=== PATIENT | male | born 1980 | race Caucasian/White ===

== ENCOUNTER 2016-06-03 14:14 | Emergency (ER) | payer OTHER ==
[2016-06-03] MEDS ORDERED: Ondansetron 4 MG/2 ML SDV IVPUSH ONE (14:32)
[2016-06-03] MEDS ORDERED: Sodium Chloride 0.9% 10 ML Syringe FLUSH PRN (14:32)
[2016-06-03] MEDS ORDERED: Famotidine 20 MG/2 ML SDV IVPUSH ONE (14:34)
--- NOTE | 2016-06-03 14:40 | EDM.PDOC ---
ED HISTORY OF PRESENT ILLNESS - General Chief Complaint: Chest Pain Stated Complaint: CHEST PAIN Time Seen by Provider: 06/03/16 14:24 Source of Information: Reports: Patient History Limitations: Reports: No limitations - History of Present Illness INITIAL COMMENTS - FREE TEXT/NARRATIVE: The patient presents with chest pain, abdominal pain, nausea, and diarrhea. He woke up this morning about 5am and worked out and before that he felt nauseated. He drove from [place] to here and he thought he was hungry so he ate a turkey lettuce wrap in [place]. That did not make him feel better. He came to our hospital to do some work and he developed some chest pain in the mid chest. He has no shortness of breath with it. He has no fever or chills. He does have generalized abdominal pain and nausea. He has diarrhea also. He does not think he ate any bad food and he was not around anyone that is sick as far as he knows of. He has a history of WPW. He had an electrophysiology study and they told him it was not in a bad spot and he did not need an ablation. Timing/Duration: Reports: Day(s): (Since this morning) Severity: moderate Location, General: Reports: chest Quality: Reports: Pressure Improves with: Reports: None Worsens with: Reports: None Associated Symptoms (General): Reports: chest pain, nausea/vomiting. Denies: cough, fever/chills, shortness of breath - Related Data Allergies/ADRs: Allergies Allergy/AdvReac Type Severity Reaction Status Date / Time methylphenidate Allergy Swelling Verified 06/03/16 14:23 [From Ritalin] Tetracyclines Allergy Swelling Verified 06/03/16 14:23 Home Meds: Home Meds Esomeprazole Magnesium [Nexium] 1 tab PO DAILY 06/03/16 [History] Ondansetron [Zofran ODT] 4 mg PO Q6H PRN #20 tab.dis 06/03/16 [Rx] Sertraline [Zoloft] 1 tab PO BEDTIME 06/03/16 [History] ED ROS GENERAL - Review of Systems Review Of Systems: See Below Constitutional: Reports: no symptoms HEENT: Reports: No symptoms Respiratory: Reports: no symptoms Cardiovascular: Reports: Chest pain Endocrine: Reports: no symptoms GI/Abdominal: Reports: Abdominal pain, Diarrhea, Nausea. Denies: Vomiting : Reports: no symptoms Musculoskeletal: Reports: no symptoms Skin: Reports: no symptoms Neurological: Reports: no symptoms ED EXAM, GENERAL - Physical Exam Exam: See Below Exam Limited By: No limitations General Appearance: alert, no apparent distress Ears: normal external exam Nose: normal inspection Head: atraumatic, normocephalic Respiratory/Chest: no respiratory distress, lungs clear, normal breath sounds Cardiovascular: regular rate, rhythm, no edema, no murmur GI/Abdominal: soft, non tender, no organomegaly, no mass Back Exam: normal inspection Extremities: normal inspection Neurological: alert, oriented, no motor/sensory deficits EKG INTERPRETATION EKG Date: 06/03/16 Time: 14:58 Rhythm: NSR Rate (beats/min): 83 [place]: LAD-left axis deviation P-wave: present QRS: normal ST-T: normal QT: normal EKG Interpretation Comments: Q waves in the inferior leads Course - Vital Signs Last Recorded V/S: Last Vital Signs Temp 97.2 F 06/03/16 14:25 Pulse 92 06/03/16 14:25 Resp 14 06/03/16 14:25 BP 146/96 H 06/03/16 14:25 Pulse Ox 99 06/03/16 14:25 - Orders/Labs/Meds Orders: Active Orders 24 hr Category Date Time Status Cardiac Monitoring [RC] . DIRECTED Care 06/03/16 14:32 Active EKG Documentation Completion [RC] STAT Care 06/03/16 14:34 Active Peripheral IV Care [RC] . DIRECTED Care 06/03/16 14:34 Active Sodium Chloride 0.9% [Normal Saline] 1,000 ml Med 06/03/16 14:45 Active IV .BOLUS Sodium Chloride 0.9% [Normal Saline] 1,000 ml Med 06/03/16 16:19 Active IV ONETIME Sodium Chloride 0.9% [Saline Flush] Med 06/03/16 14:32 Active 10 ml FLUSH ASDIRECTED PRN ED Antiemetic Medication Reflex [OM.PC] Stat Oth 06/03/16 14:33 Ordered Peripheral IV Insertion Adult [OM.PC] Stat Oth 06/03/16 14:32 Ordered Medication Orders Sodium Chloride (Normal Saline) 1,000 mls @ 1,000 mls/hr IV .BOLUS EDYTA Last Admin: 06/03/16 14:59 Dose: 1,000 mls/hr Sodium Chloride (Normal Saline) 1,000 mls @ 1,000 mls/hr IV ONETIME ONE Stop: 06/03/16 17:18 Last Admin: 06/03/16 16:27 Dose: 1,000 mls/hr Sodium Chloride (Saline Flush) 10 ml FLUSH ASDIRECTED PRN PRN Reason: Keep Vein Open Last Admin: 06/03/16 15:03 Dose: 10 ml Labs: Laboratory Tests 06/03/16 06/03/16 06/03/16 Range/Units 14:32 14:50 15:38 WBC 10.26 H (4.23-9.07) K/mm3 RBC 5.37 (4.63-6.08) M/mm3 Hgb 15.9 (13.7-17.5) gm/L Hct 46.3 (40.1-51.0) % MCV 86.2 (79.0-92.2) fl MCH 29.6 (25.7-32.2) pg MCHC 34.3 (32.2-35.5) g/dl RDW Std Deviation 40.4 (35.1-43.9) fL Plt Count 219 (163-337) K/mm3 MPV 10.0 (9.4-12.3) fl Neut % (Auto) 88.1 H (34.0-67.9) % Lymph % (Auto) 7.9 L (21.8-53.1) % [place] % (Auto) 2.9 L (5.3-12.2) % Eos % (Auto) 0.8 (0.8-7.0) Baso % (Auto) 0.1 (0.1-1.2) % Neut # 9.04 H (1.78-5.38) K/mm3 Lymph # 0.81 L (1.32-3.57) K/mm3 [place] # 0.30 (0.30-0.82) K/mm3 Eos # 0.08 (0.04-0.54) K/mm3 Baso # 0.01 (0.01-0.08) K/mm3 Manual Slide Review Normal smear Sodium 137 (136-145) mEq/L Potassium 3.8 (3.5-5.1) mEq/L Chloride 102 (98-107) mEq/L Carbon Dioxide 23 (21-32) mEq/L Anion Gap 15.8 H (5-15) BUN 22 H (7-18) mg/dL Creatinine 1.0 (0.7-1.3) mg/dL Est Cr Clr Drug Dosing 107.72 mL/min Estimated GFR (MDRD) > 60 (>60) mL/min BUN/Creatinine Ratio 22.0 H (14-18) Glucose 121 H (74-106) mg/dL Calcium 8.9 (8.5-10.1) mg/dL Total Bilirubin 0.8 (0.2-1.0) mg/dL AST 64 H (15-37) U/L ALT 75 H (16-63) U/L Alkaline Phosphatase 75 (46-116) U/L Troponin I < 0.017 (0.00-0.056) ng/mL Total Protein 8.1 (6.4-8.2) g/dl Albumin 4.2 (3.4-5.0) g/dl Globulin 3.9 gm/dL Albumin/Globulin Ratio 1.1 (1-2) Lipase 167 (73-393) U/L Urine Color Yellow (Yellow) Urine Appearance Clear (Clear) Urine pH 5.5 (5.0-8.0) Ur Specific [place] > or = 1.030 (1.005-1.030) Urine Protein Trace H (Negative) Urine Glucose (UA) Negative (Negative) Urine Ketones 2+ H (Negative) Urine Occult Blood Negative (Negative) Urine Nitrite Negative (Negative) Urine Bilirubin Negative (Negative) Urine Urobilinogen 0.2 (0.2-1.0) Ur Leukocyte Esterase Negative (Negative) Urine RBC 0-5 (0-5) /hpf Urine WBC 0-5 (0-5) /hpf Ur Epithelial Cells 0-5 (0-5) /hpf Urine Bacteria Rare (FEW) /hpf Urine Mucus Not seen (FEW) /hpf Meds: Medications Generic Name Dose Route Start Last Admin Trade Name Freq PRN Reason Stop Dose Admin Sodium Chloride 1,000 mls @ 1,000 mls/hr 06/03/16 14:45 06/03/16 14:59 Normal Saline IV 1,000 mls/hr .BOLUS EDYTA Administration Sodium Chloride 1,000 mls @ 1,000 mls/hr 06/03/16 16:19 06/03/16 16:27 Normal Saline IV 06/03/16 17:18 1,000 mls/hr ONETIME ONE Administration Sodium Chloride 10 ml 06/03/16 14:32 06/03/16 15:03 Saline Flush FLUSH 10 ml ASDIRECTED PRN Administration Keep Vein Open Discontinued Medications Generic Name Dose Route Start Last Admin Trade Name Freq PRN Reason Stop Dose Admin Famotidine 20 mg 06/03/16 14:34 06/03/16 15:02 Pepcid IVPUSH 06/03/16 14:35 20 mg ONETIME ONE Administration Metoclopramide HCl 10 mg 06/03/16 16:18 06/03/16 16:28 Reglan IVPUSH 06/03/16 16:19 10 mg ONETIME ONE Administration Ondansetron HCl 4 mg 06/03/16 14:32 06/03/16 15:00 Zofran IVPUSH 06/03/16 14:33 4 mg ONETIME ONE Administration - Re-Assessments/Exams Free Text/Narrative Re-Assessment/Exam: 06/03/16 14:47 I ordered an IV NS 1L bolus, zofran 4mg IV, pepcid 20mg IV, labs, UA and a CXR. The patient did not want the CXR so I canceled it. 06/03/16 17:17 His WBC is slightly elevated at 10.26. His anion gap is elevated at 15.8. His glucose is 121. His AST and ALT are slightly elevated. His troponin is negative. He did have an abnormal EKG. I did obtain one from [facility] in [place] and there were no changes from prior. He was still nauseated so I gave him reglan 10mg IV and more fluids. He feels better after that so I will discharge him home with some zofran. He has viral gastroenteritis. Departure - Departure Time of Disposition: 17:20 Disposition: Home, Self-Care 01 Condition: good Clinical Impression: Viral gastroenteritis Chest pain Qualifiers: Chest pain type: unspecified Qualified Code(s): R07.9 - Chest pain, unspecified Prescriptions: Ondansetron [Zofran ODT] 4 mg PO Q6H PRN #20 tab.dis PRN Reason: Nausea/Vomiting Forms: ED Department Discharge Additional Instructions: Drink plenty of fluids. Take zofran for the nausea and vomiting. Please return if you are worse. - My Orders Last 24 Hours: My Active Orders 06/03/16 14:32 Cardiac Monitoring [RC] . DIRECTED Sodium Chloride 0.9% [Saline Flush] 10 ml FLUSH ASDIRECTED PRN Peripheral IV Insertion Adult [OM.PC] Stat 06/03/16 14:33 ED Antiemetic Medication Reflex [OM.PC] Stat 06/03/16 14:34 EKG Documentation Completion [RC] STAT Peripheral IV Care [RC] . DIRECTED 06/03/16 14:45 Sodium Chloride 0.9% [Normal Saline] 1,000 ml IV .BOLUS 06/03/16 16:19 Sodium Chloride 0.9% [Normal Saline] 1,000 ml IV ONETIME - Assessment/Plan Last 24 Hours: My Active Orders 06/03/16 14:32 Cardiac Monitoring [RC] . DIRECTED Sodium Chloride 0.9% [Saline Flush] 10 ml FLUSH ASDIRECTED PRN Peripheral IV Insertion Adult [OM.PC] Stat 06/03/16 14:33 ED Antiemetic Medication Reflex [OM.PC] Stat 06/03/16 14:34 EKG Documentation Completion [RC] STAT Peripheral IV Care [RC] . DIRECTED 06/03/16 14:45 Sodium Chloride 0.9% [Normal Saline] 1,000 ml IV .BOLUS 06/03/16 16:19 Sodium Chloride 0.9% [Normal Saline] 1,000 ml IV ONETIME
[2016-06-03] MEDS ORDERED: Sodium Chloride 0.9% 1,000 ML IV SCH (14:45)
[2016-06-03] MEDS ORDERED: Metoclopramide 10 MG/2 ML SDV IVPUSH ONE (16:18)
[2016-06-03] MEDS ORDERED: Sodium Chloride 0.9% 1,000 ML IV ONE (16:19)
[2016-06-03 18:11] VITALS: BP 132/77
== END 2016-06-03 17:40 | disposition home or self-care (01) ==
LOC: JD.ED 14:14
DX: A08.4 Viral intestinal infection, unspecified (principal); R07.9 Chest pain, unspecified; Z88.8 Allergy status to other drugs, medicaments and biological substances; Z79.899 Other long term (current) drug therapy
CPT/HCPCS: 36415; 80053; 81001; 83690; 84484; 85025; 93005; 96361; 96374; 96375; 99285; J2405; J2765; J7040; J7050; 99284